=== PATIENT | female | born 1980 | race Caucasian/White ===

== ENCOUNTER 2017-04-20 12:40 | Emergency (ER) | payer OTHER ==
[2017-04-20 12:45] VITALS: BMI 22.6
--- NOTE | 2017-04-20 13:32 | PDOC ---
History of Present Illness - General Chief Complaint: Vaginal Bleeding Stated Complaint: BLEEDING (18 WKS ) Time Seen by Provider: 04/20/17 12:47 History Source: Patient Exam Limitations: No Limitations - History of Present Illness Initial Comments: This is a 36 yo (18 weeks by US, LMP 12/14/16) female who presents with RLQ pain and vaginal spotting. She was feeling bloated this morning but was otherwise feeling well, but about one hour TRANSIT MAN she developed constant non- radiating RLQ pain up to 4/10, as well as vaginal bleeding. She notes having bled about 2 tablespoons of medium-red blood prior to coming to the ED, and she has been using a feminine pad since leaving home for the ED. She has been receiving regular care with Deirdre Mckeon and team at the clinic on , and had an ultrasound which was noted to be normal. The patient does also note that they may have found an abnormality with her cervix during this , but she cannot remember what her diagnosis was. This was a planned with her and otherwise she denies any complications. She also denies any history of (or concern for) STDs. She denies fever, chills, nausea, vomiting, diarrhea, constipation, painful urination, vaginal discharge, headache , or dizziness. She does not know her blood type. Past History - Past Medical History Allergies/Adverse Reactions: Allergies Allergy/AdvReac Type Severity Reaction Status Date / Time No Known Allergies Allergy Verified 04/20/17 12:45 Home Medications: Ambulatory Orders NK [No Known Home Medication] 04/20/17 Other medical history: pt denies - Psycho/Social/Smoking Cessation Hx Suicidal Ideation: No Smoking History: Never smoked Information on smoking cessation initiated: No Hx Alcohol Use: No Drug/Substance Use Hx: No Substance Use Type: None Review of Systems - Review of Systems Able to Perform ROS?: Yes Constitutional: No: Chills, Fever, Unexplained wgt Loss HEENTM: No: Nose Congestion, Throat Pain Respiratory: No: Cough, Shortness of Breath Cardiac (ROS): No: Chest Pain, Lightheadedness, Palpitations ABD/GI: Yes: Other (right lower abdominal pain). No: Constipated, Diarrhea, Nausea, Vomiting, Tarry Stools : Yes: Other (vaginal bleeding). No: Burning, Dysuria Musculoskeletal: No: Back Pain, Neck Pain Integumentary: No: Bruising, Rash Neurological: No: Headache, Numbness, Tingling, Weakness, Dizziness Endocrine: No: Unexplained Weight Gain, Unexplained Weight Loss *Physical Exam - Vital Signs Last Vital Signs Temp Pulse Resp BP Pulse Ox 98.2 F 77 19 116/73 97 04/20/17 12:43 04/20/17 12:43 04/20/17 12:43 04/20/17 12:43 04/20/17 12:43 - Physical Exam General Appearance: Yes: Nourished, Appropriately Dressed, Other (pleasant Venezuelan-speaking female, appears anxious and concerned) HEENT: positive: EOMI, Normal Voice, Hearing Grossly Normal. negative: Scleral Icterus (R), Scleral Icterus (L), Nasal Congestion Neck: positive: Trachea midline, Supple. negative: Tender, Rigid Respiratory/Chest: positive: Lungs Clear, Normal Breath Sounds. negative: Respiratory Distress, Accessory Muscle Use, Labored Respiration, Decreased Breath Sounds, Crackles, Rhonchi, Stridor, Wheezing Cardiovascular: positive: Regular Rhythm, Regular Rate. negative: Murmur Female Pelvic Exam: positive: normal external exam, vaginal bleeding (scant dark blood with small clots, os appears closed, a 1-cm strip of tissue or mucus seems to be stuck half-out of the cervical os and this is not manipulated by the examiner) Gastrointestinal/Abdominal: positive: Normal Bowel Sounds, Tender (mild RLQ tenderness to palpation), Soft, Other (abdomen visibly gravid). negative: Organomegaly, Pulsatile Mass, Guarding, Rebound Musculoskeletal: positive: Normal Inspection. negative: Decreased Range of Motion, Vertebral Tenderness Extremity: positive: Normal Capillary Refill, Normal Inspection, Normal Range of Motion. negative: Tender, Cyanosis Integumentary: positive: Normal Color, Dry, Warm. negative: Erythema, Rash, Bruising Neurologic: positive: local hazmat driver II-XII NML intact (grossly), Fully Oriented, Alert, Normal Mood/Affect, Normal Response, Motor Strength 5/5 ED Treatment Course - LABORATORY CBC & Chemistry Diagram: 04/20/17 13:45 04/20/17 13:45 Comment: UA with 1+ blood otherwise unremarkable Medical Decision Making - Medical Decision Making 36 yo female with known uncomplicated endocervical polym p/w vaginal spotting and RLQ pain @ 18 wks . External exam with mild RLQ ttp, pelvic exam with mucus-like substance stuck half-out of cervix, os open slightly. US bedside shows fetus with +movement, FHR around 128. DDX includes loss of mucus plug, impending miscarriage, placenta previa, placental abruption. Ordered are CBC, CMP, type&screen, hCG quant, UA w/ cx, formal US OB limited. 04/20/17 13:54 Spoke with RN from Deirdre Mckeon's office. Pt had an exam on 01/23 and there were no abnormalities documented. Patient also had a colposcopy and there was no mention of the cervix being open. Large endocervical polyp was a known diagnosis by the clinic. Dr. Lua is the clinic MD and will be front office representative after clinic. 04/20/17 14:24 Dr. Knight spoke with Dr. Lua who will come in to see the patient in 2 hours. Pt herself is doing well with tolerable pain level and bleeding at the same slow rate. CBC diff within normal limits, UA without evidence of infection, 1+ blood. 04/20/17 16:40 Dr. Lua kindly comes to see the patient in the ED. On his examination, os is closed, he states likely cause of scant bleeding is her known polyp. He advised her to follow up with [facility] MOWER REPAIRER MD on Monday, no intercourse, rest. 04/20/17 16:41 Pt's labs are not concerning. Blood type is O positive and she does not require Rhogam. She is appropriate for outpatient followup with [facility]. *DC/Admit/Observation/Transfer Diagnosis at time of Disposition: Vaginal bleeding before 22 weeks gestation, Cramping affecting , antepartum - Discharge Dispostion Disposition: HOME Condition at time of disposition: Stable Admit: No - Referrals Referrals: Deirdre Mckeon MD [Primary Care Provider] - - Patient Instructions Printed Discharge Instructions: DI for Vaginal Bleeding During Additional Instructions: You were seen today for vaginal bleeding and abdominal pain during . Your blood and urine laboratories came back normal. On your ultrasounds done here in the emergency room, the baby appeared fine and we were able to see the heart beat. You have a polyp of tissue in your cervix which was already known according to your SALES AND MARKETING ASSOCIATE's office. This is probably the source of the bleeding. Please call [phone] tonight or tomorrow to make an appointment with Dr. Buckley at [facility] this coming Monday (04/25/17). You can also return to the emergency department for any fever, worsened abdominal pain, worsened bleeding, or other new or worsened symptoms. Print Language: SYRIAC - Attestations Physician Attestion: I, Dr. Dilia Gonzáles, attest that this document has been prepared under my direction and personally reviewed by me in its entirety. I further attest, that it accurately reflects all work, treatment, procedures and medical decision -making performed by me.
--- NOTE | 2017-04-20 14:12 | PDOC ---
Attending Attestation - Medical Decision Making 04/20/17 14:[address] Isbell via cell phone Was told Dr. Lua is network systems consultant. 04/20/17 14:[address] Lua called via phone answering service. Patient's case was discussed. Documentation prepared by Khushboo Liu, acting as special forces medical sergeant for Eloise Knight MD. <Khushboo Liu - Last Filed: 04/20/17 14:18> - Resident Resident Name: Gonzáles,Mary - ED Attending Attestation I have performed the following: I have examined & evaluated the patient, The case was reviewed & discussed with the resident, I agree w/resident's findings & plan, Exceptions are as noted - HPI HPI: 04/20/17 14:07 36 yo F currently G1po at 18 weeks here wtih vaginal spotting and lower abd pain. started today. no n/v less than period but color of a period. no urinary sxs. no other complaints. no flank pain. no trauma. has been seeing DR. Levine , no problems so far this . no mod factors. - Physicial Exam PE: 04/20/17 14:08 on exam awake alert lungs clear bilaterally. no wheeze no crackles. heart RRR no mrg. abd soft NT ND. skin warm and dry. pelvic , mucous with scant blood streak hanging from cervix, cervix open 1 mm. - Medical Decision Making 04/20/17 14:08 36 yo F with at 18 weeks here with vaginal spotting 1 hour prior to arrival. on exam with mucous from cervix. plan ultrasound to evaluate cervical opening. blood type and labsl. will d/w network systems consultant ob. 04/20/17 14:[address] Saucedo, will see pt in the ED , tv us evaluate cevical opening. 04/20/17 16:52 pt evaluted by Sheryl who feels could be polyp, unconcerned. recommend followup in outpt . return for severe pain or worsening symtpoms. pt blood type o positive. dc home. <Eloise Knight - Last Filed: 04/20/17 16:53>
[2017-04-20 14:13] LABS: BASOPHIL 0.2 % (0-2.0); EOSINOPHIL 1.1 % (0-4.5); MCH 30.6 pg (25.7-33.7); MEAN CELL VOLUME 90.1 fl (80-96); MEAN PLT VOLUME 9.1 fl (7.5-11.1); NEUTROPHILS 71.5 % (42.8-82.8); PLATELET COUNT 196 K/MM3 (134-434); RDW 13.8 % (11.6-15.6); WHITE BLOOD COUNT 7.2 K/mm3 (4.0-10.0)
[2017-04-20 14:16] LABS: URINE APPEARANCE CLEAR; URINE BILIRUBIN NEGATIVE (NEGATIVE); URINE BLOOD 1+ (NEGATIVE); URINE COLOR COLORLESS; URINE GLUCOSE (UA) NEGATIVE (NEGATIVE); URINE KETONE NEGATIVE (NEGATIVE); URINE LEUK ESTERASE NEGATIVE (NEGATIVE); URINE NITRITE NEGATIVE (NEGATIVE); URINE PROTEIN NEGATIVE (NEGATIVE); URINE UROBILINOGEN NEGATIVE mg/dL (0.2-1.0)
[2017-04-20 14:42] LABS: ALBUMIN 3.1 g/dl (3.4-5.0); ANION GAP 10 (8-16); BILIRUBIN,TOTAL 0.3 mg/dL (0.2-1.0); CALCIUM 8.8 mg/dL (8.5-10.1); CO2 25 mmol/L (21-32); CREATININE 0.3 mg/dL (0.55-1.02); GLUCOSE,RANDOM 89 mg/dL (74-106); SGOT/AST 20 U/L (15-37); SGPT/ALT 28 U/L (12-78)
[2017-04-20 14:43] LABS: ALK PHOS 65 U/L (45-117); TOT PROT 6.5 g/dl (6.4-8.2)
[2017-04-20 14:44] LABS: INR 0.95 (0.82-1.09); PROTHROMBIN TIME (PATIENT) 10.4 SEC (9.98-11.88)
[2017-04-20 16:01] VITALS: BP 107/62; PULSE 86; TEMP 98.3
== END 2017-04-20 17:00 | disposition home or self-care (01) ==
LOC: JER 12:40
DX: O20.9 Hemorrhage in early pregnancy, unspecified (principal); Z3A.18 18 weeks gestation of pregnancy
CPT/HCPCS: 36415; 76815; 76817-TC; 80053; 81003; 81015; 85025; 85610; 86850; 86900; 86901; 87086; 99283-25

== ENCOUNTER 2017-09-15 13:35 | Inpatient (IN) | payer OTHER ==
[2017-09-15] MEDS ORDERED: DINOPROSTONE 10 MG VAGINAL SUPPOSITORY VG ONE (14:20)
[2017-09-15 14:58] VITALS: BMI 27.9
[2017-09-15] MEDS ORDERED: SODIUM PHOSPHATE/NA BIPHOS 133 ML ENEMA PR ONE (15:06)
[2017-09-15] MEDS ORDERED: DEXTROSE 5%-LACTATED RINGERS 1,000 ML IV SCH (15:15)
[2017-09-15 15:22] LABS: BASO % 0.4 % (0-2.0); EOS % 1.1 % (0-4.5); HEMOGLOBIN 12.7 GM/dL (10.7-15.3); LYMPH % 20.6 % (8-40); MCH 31.8 pg (25.7-33.7); MCHC 34.3 g/dl (32.0-36.0); MEAN CELL VOLUME 92.6 fl (80-96); MONO % 7.2 % (3.8-10.2); NEUT % 70.7 % (42.8-82.8); RBC 3.99 M/mm3 (3.60-5.2); RDW 13.4 % (11.6-15.6); WHITE BLOOD COUNT 6.2 K/mm3 (4.0-10.0)
--- NOTE | 2017-09-15 15:33 | HP ---
Past Medical History - Primary Care Physician PCP:: Flower Buckley - Admission Chief Complaint: pt for induction of labor History of Present Illness: 37 yrs 40.3 weeks iup, with Oligohydramnios admitted for Induction of labor . Sono 09/15/17 SLIUP Vx, YOBANY 3.5, BPP 6/8, EFW 7'6"( 3354 gm) post dates monitored by NST , cat-1 PNC at [address] [place] [address] . Wt gain 31 lbs serial sono done by MFM for growth . AFP & Materna T -21 neg work Up : O pos, Rubella immune, Hbsag neg, Rpr nr,Sickle neg, Quantiferon neg, Hiv neg , Gc/Ct cultures neg, Gbs neg, Pngt 134 01/21/17 pap abn LSIL, Non 16/18 HR Hpv pos 03/13/[address] Isbell h/o cervical polyp, early pregn bleeding . 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 No: Gastritis Hepatobiliary: No: Cholelithiasis, Hepatitis B Renal/: No: UTI Reproductive: Yes: Other (01/21/17 Pap Lsil, Non 16/18 HR Hpv pos 03/13/17 colposcopy without bx during ) ...: 1 ...Para: 0 ...Term: 0 ...: 0 ...Spon : 0 ...Induced : 0 ...Multiple Gestation: 0 ...LMP: 12/14/16 ... Weeks Gestation by Dates: 39.2 ...EDC by Dates: 09/20/17 ...EDC by Sono: 09/12/17 (40.3 weeks ) Heme/Onc: No: Anemia Infectious Disease: No: AIDS, HIV, STD's, Tuberculosis Psych: No: Addictions, Anxiety, Bipolar, Depression, Panic Endocrine: No: Diabetes Mellitus, Hyperthyroidism - Past Surgical History Past Surgical History: Yes: None Hx Myomectomy: No Hx Transabdominal Cerclage: No - Smoking History Smoking history: Never smoked Have you smoked in the past 12 months: No - Alcohol/Substance Use Hx Alcohol Use: No Home Medications - Allergies Allergies/Adverse Reactions: Allergies Allergy/AdvReac Type Severity Reaction Status Date / Time albuterol Allergy Mild Itching Verified 09/15/17 14:41 - Home Medications Home Medications: Ambulatory Orders Ferrous Sulfate [Feosol] 325 mg PO BID 09/15/17 Vitamins (Sjr) - 1 tab PO DAILY 09/15/17 Physical Exam - Maternity Vital Signs: Vital Signs Temperature 98.4 F 09/15/17 14:15 Pulse Rate 69 09/15/17 15:00 Respiratory Rate 20 09/15/17 15:00 Blood Pressure 116/69 09/15/17 15:00 O2 Sat by Pulse Oximetry (%) Constitutional: Yes: Well Nourished, No Distress Eyes: Yes: WNL HENT: Yes: WNL, Normocephalic Neck: Yes: WNL, Supple Cardiovascular: Yes: WNL, Regular Rate and Rhythm Lungs: Clear to auscultation Breast(s): Yes: WNL - Abdominal Exam/OB Fundal Height: 38 Number of Fetuses: Single Presentation: Vertex Regularity: Irregular Intensity: Unaware Monitor Mode: External Heart Rate (range): 130 Heart Rate Location: [facility] Category: I Accelerations: Uniform Decelerations: None - Vaginal Exam/OB Vaginal Bleediing: Fresh Blood (minimal) Speculum Exam: No Dilatation (cm): FT Effacement (%): 50 Amniotic Membrane Status: Intact Presentation: Vertex/Position Station: -2 - Physical Exam Musculoskeletal: Yes: WNL Extremities: Yes: WNL. No: Calf Tenderness Edema: Yes Edema: LLE: 1+, RLE: 1+ Deep Tendon Reflex Grade: Normal +2 ...Motor Strength: WNL Psychiatric: Yes: WNL - Labs Lab Results: Laboratory Tests 09/15/17 09/15/17 09/15/17 14:30 14:35 14:35 WBC 6.2 Hgb 12.7 Hct 37.0 Plt Count 151 D Neutrophils % 70.7 Lymphocytes % 20.6 Monocytes % 7.2 PT with INR 9.50 L INR 0.84 L Sodium Potassium Chloride Carbon Dioxide BUN Creatinine Random Glucose Urine Protein Negative Ur Leukocyte Esterase Trace H Urine WBC (Auto) 8 Urine RBC (Auto) <1 Blood Type Antibody Screen 09/15/17 09/15/17 14:35 14:35 WBC Hgb Hct Plt Count Neutrophils % Lymphocytes % Monocytes % PT with INR INR Sodium 138 Potassium 4.0 Chloride 106 Carbon Dioxide 23 BUN 14 D Creatinine 0.4 L D Random Glucose 85 Urine Protein Ur Leukocyte Esterase Urine WBC (Auto) Urine RBC (Auto) Blood Type O POSITIVE Antibody Screen Negative Problem List - Problems (1) AMA (advanced maternal age) primigravida 35+ Code(s): O09.519 - SUPERVISION OF ELDERLY PRIMIGRAVIDA, UNSPECIFIED TRIMESTER Qualifiers: Trimester: third trimester Qualified Code(s): O09.513 - Supervision of elderly primigravida, third trimester (2) Post-term , 40-42 weeks of gestation Code(s): O48.0 - POST-TERM (3) Post term over 40 weeks Code(s): O48.0 - POST-TERM (4) Elective induction of labor planned Code(s): [id number] - (5) Oligohydramnios Code(s): O41.00X0 - OLIGOHYDRAMNIOS, UNSP TRIMESTER, NOT APPLICABLE OR UNSP Qualifiers: Fetus number: single or unspecified fetus Trimester: third trimester Qualified Code(s): O41.03X0 - Oligohydramnios, third trimester, not applicable or unspecified Assessment/Plan 37 yra ( AMA) , 40.3/7 weeks( post term ) , Severe Oligohydramnios , admitted for induction of labor . gbs neg . Plan cervidil induction of labor Trial of labor for vaginal delivery
[2017-09-15 15:37] LABS: INR 0.84 (0.82-1.09); PROTHROMBIN TIME (PATIENT) 9.5 SEC (9.98-11.88)
[2017-09-15 15:40] LABS: ACTIVATED PTT 27.7 SECONDS (26.9-34.4)
[2017-09-15 15:45] LABS: URINE APPEARANCE CLEAR; URINE BILIRUBIN NEGATIVE (NEGATIVE); URINE BLOOD NEGATIVE (NEGATIVE); URINE COLOR YELLOW; URINE GLUCOSE (UA) NEGATIVE (NEGATIVE); URINE KETONE NEGATIVE (NEGATIVE); URINE NITRITE NEGATIVE (NEGATIVE); URINE PROTEIN NEGATIVE (NEGATIVE); URINE UROBILINOGEN NEGATIVE mg/dL (0.2-1.0)
[2017-09-15 15:46] LABS: URINE LEUK ESTERASE 1+ (NEGATIVE)
[2017-09-15 15:46] LABS: PLATELET COUNT 151 K/MM3 (134-434); PLATELET ESTIMATE DECREASED
[2017-09-15 15:47] LABS: EPI CELLS FEW /HPF (FEW); URINE MUCUS RARE
[2017-09-15 15:55] LABS: ANION GAP 9 (8-16); BLOOD UREA NITROGEN 14 mg/dL (7-18); CALCIUM 8.2 mg/dL (8.5-10.1); CHLORIDE 106 mmol/L (98-107); CO2 23 mmol/L (21-32); CREATININE 0.4 mg/dL (0.55-1.02); GLUCOSE,RANDOM 85 mg/dL (74-106); SODIUM 138 mmol/L (136-145)
[2017-09-15] MEDS ORDERED: BUTORPHANOL TARTRATE 1 MG/ML VIAL IVPUSH ONE (23:15)
[2017-09-15] MEDS ORDERED: PROMETHAZINE HCL 25 MG/1 ML VIAL IVPUSH ONE (23:15)
[2017-09-16] MEDS ORDERED: DEXTROSE 5%-LACTATED RINGERS 1,000 ML IV ONE (02:45)
[2017-09-16] MEDS ORDERED: OXYTOCIN 15 UNITS/ LR 250 ML 15 UNIT/250 ML INFUS.BAG IVPB SCH (03:30)
[2017-09-16] MEDS ORDERED: PROMETHAZINE HCL 25 MG/1 ML VIAL ONE (04:37)
[2017-09-16] MEDS ORDERED: BUTORPHANOL TARTRATE 1 MG/ML VIAL ONE ×2 (04:37)
--- NOTE | 2017-09-16 07:06 | PN ---
Progress Note, Labor Vaginal Exam #1 Labor Exam Date: 09/16/17 Labor Exam Time: 06:57 Heart Rate (range): 150 Dilatation: 2-3 Effacement (%): 70 Amniotic Membrane Status: Intact Presentation: Vertex/Position Station: -2 Remarks: fhr cat-1 uc irregular , 2-3-5 min . 2.30 am cervidil removed 3.30 am Pitocin Induction started 4.40 AM stadol 2mg + phenrgan 25 mg iv stat given Selected Entries 09/16/17 09/16/17 06:00 07:00 Temperature 97.6 F Pulse Rate 69 79 Blood Pressure 115/65 118/62 Vaginal Exam #2 Labor Exam Date: 09/16/17 Labor Exam Time: 11:28 Heart Rate (range): 150 Dilatation: 6 Effacement (%): 100 Amniotic Membrane Status: Intact Station: 0 (0/+1) Remarks: fhr cat-1 uc q3-6 11.00 AM epidural labor analgesia given pitocin 8ml/hr Selected Entries 09/16/17 10:00 Temperature 98.7 F Pulse Rate 57 L Blood Pressure 116/58 Vaginal Exam #3 Labor Exam Date: 09/16/17 Labor Exam Time: 14:04 Heart Rate (range): 160 Dilatation: 9 Effacement (%): 100 Amniotic Membrane Status: Ruptured (srom at 11.45am , clear) Presentation: Vertex/Position Station: +2 Remarks: fhr cat-1 uc 2-5 min dysfunctional uc . pit 12 ml /hr . pt comfortable. Selected Entries 09/16/17 09/16/17 13:00 13:15 Temperature 99.1 F Pulse Rate 63 61 Blood Pressure 99/57 108/61 Vaginal Exam #4 Labor Exam Date: 09/16/17 Labor Exam Time: 15:10 Heart Rate (range): 150--170 Dilatation: 10 Effacement (%): 100 Amniotic Membrane Status: Ruptured Presentation: Vertex/Position (ROP) Station: +2 (+2/+3) Remarks: fhr cat-1 sometimes cat-11 uc 2-4 min pt encouraged to push Selected Entries 09/16/17 09/16/17 09/16/17 14:00 14:15 14:30 Temperature 99 F Pulse Rate 69 70 67 Blood Pressure 110/62 95/48 09/16/17 14:45 Temperature Pulse Rate 70 Blood Pressure
[2017-09-16] MEDS ORDERED: FENTANYL/BUPIVACAINE/NS/PF - PCEA - 50 ML DISP.SYRIN EP ONE (10:01)
[2017-09-16] MEDS ORDERED: ELECTROLYTE-148 SOLN 1,000 ML IV SCH (10:30)
[2017-09-16] MEDS ORDERED: FENTANYL/BUPIVACAINE/NS/PF - PCEA - 50 ML DISP.SYRIN EP SCH (12:00)
[2017-09-16] MEDS ORDERED: OXYTOCIN 20 UNITS in 0.9% NS 20 UNIT/1,000 ML INFUS.BAG IV ONE (15:06)
[2017-09-16] MEDS ORDERED: LIDOCAINE HCL 1% PRESERVATIVE FREE - 30ML VIAL ONE (15:06)
[2017-09-16] MEDS ORDERED: oxyCODONE HCL 5 MG TABLET PO PRN (16:53)
[2017-09-16] MEDS ORDERED: IBUPROFEN 600 MG TABLET (FP) PO PRN (16:53)
[2017-09-16] MEDS ORDERED: ACETAMINOPHEN 325 MG TABLET (FP) PO PRN (16:53)
[2017-09-16] MEDS ORDERED: BENZOCAINE 20% 57 GM BOTTLE TP PRN (16:53)
[2017-09-16] MEDS ORDERED: METHYLERGONOVINE MALEATE 0.2 MG/1 ML AMP IM PRN (16:53)
[2017-09-16] MEDS ORDERED: BISACODYL 10 MG SUPP.RECT RC PRN (16:53)
[2017-09-16] MEDS ORDERED: BENZOCAINE 28 GM HEMORRHOIDAL OINTMENT TP PRN (16:53)
[2017-09-16] MEDS ORDERED: WITCH HAZEL 50% (TUCKS) 40 PAD/JAR PAD TP PRN (16:53)
[2017-09-16] MEDS ORDERED: OXYTOCIN 20 UNITS in 0.9% NS 20 UNIT/1,000 ML INFUS.BAG IV SCH (17:00)
--- NOTE | 2017-09-16 17:04 | PN ---
Delivery - Delivery Vaginal Delivery: No Problems, Spontaneous (pt delievered as ROP position, cord around arm & between chest & uterus of mother . immediate suction nasal & oral was done & baby handed over to vat overhauler Dr Griffiths) Type of Anesthesia: Local, Epidural Episiotomy/Laceration: Midline (episiotomy was sutured in layers with chr catgut #2/0 . Pr exam mucosa & sphincter was intact) EBL (cc): 400 Delivery, Single - Stages of Labor Date 1st Stage Initiatied: 09/15/17 Time 1st Stage Initiated: 22:00 Date 2nd Stage Initiated: 09/16/17 Time 2nd Stage Initiated: 15:10 Date of Delivery: 09/16/17 Time of Delivery: 16:16 Date Placenta Delivered: 09/16/17 Time Placenta Delivered: 16:20 Placenta: Yes: Spontaneous, Uterine Exploration - Condition of Infant Ax Survey Worker/Lead Net Software Developer Present: Yes Name: [email or web address] Gender: Male Weight: 6 lb 7 oz Position: Right, OP Total Hours ROM (Hrs/Mins): 4hrs/35mins light meconiu - 1 Minute Total Score: 7 5 Minutes Total Score: 9 - [place] Feeding Plan Initial Plan: Exclusive throughout hospitalization Remarks - Remarks Remarks: 37 yrs ( AMA) , ,post term pregn ( 40.3 wks) , Oligohydramnios ( vinicio 3.5) , gbs neg pnc at [address] [place] [address] 10/16/16 cervidil insertion for induction of labor stadol + phenrgan followed by Epidural labor analgesia . Pitocin induction 10/17/16
[2017-09-16 17:15] LABS: ARTERIAL BLOOD GAS BASE EXCESS -5.7 meq/l (-2-2)
[2017-09-16 17:16] LABS: VENOUS PC02 56.2 mmHg (38-52); VENOUS PO2 20.8 mmHg (28-48)
[2017-09-16 17:17] LABS: ARTERIAL BLOOD GAS pH 7.24 (7.35-7.45)
[2017-09-16 17:18] LABS: ARTERIAL BLD GAS O2 SATURATION 32.4 % (90-98.9); ARTERIAL BLOOD GAS PO2 20.2 mmHg (80-100); VENOUS PH 7.21 (7.32-7.42)
[2017-09-16] MEDS: FERROUS SO4 325 MG TABLET (FP) PO SCH (18:09)
[2017-09-17] MEDS: FERROUS SO4 325 MG TABLET (FP) PO SCH ×2 (09:01→17:11)
[2017-09-17] MEDS: PRENATAL VITAMINS W/ FOLIC ACID TABLET (FP) PO SCH (09:01)
[2017-09-17 09:07] LABS: BASO % 0.4 % (0-2.0); EOS % 0.5 % (0-4.5); HEMOGLOBIN 11.3 GM/dL (10.7-15.3); LYMPH % 10.4 % (8-40); MCH 30.7 pg (25.7-33.7); MCHC 33.1 g/dl (32.0-36.0); MEAN CELL VOLUME 92.8 fl (80-96); MONO % 3.9 % (3.8-10.2); NEUT % 84.8 % (42.8-82.8); PLATELET COUNT 122 K/MM3 (134-434); RBC 3.67 M/mm3 (3.60-5.2); RDW 13.4 % (11.6-15.6); WHITE BLOOD COUNT 14.7 K/mm3 (4.0-10.0)
--- NOTE | 2017-09-17 11:59 | PN ---
Post Progress Note - Subjective Subjective: c/o perineal soreness voiding without difficulty Post Day: 1 Type of Delivery: Vital Signs: Vital Signs Temperature 97.9 F 09/17/17 08:33 Pulse Rate 83 09/17/17 08:33 Respiratory Rate 20 09/17/17 08:33 Blood Pressure 110/73 09/17/17 08:33 O2 Sat by Pulse Oximetry (%) 98 09/16/17 17:55 Breast Exam: Yes: Other (BF ). No: Engorged Uterus: Yes: Fundus Firm, Fundus below umbilicus, Non-tender Lochia: Yes: Rubra Lochia, amount: Moderate Extremities: Yes: Calves non-tender, Edema Perineum: Yes: Episiotomy (healing ) Activity: Ambulating - Labs Labs: CBC WBC 14.7 K/mm3 (4.0-10.0) H D 09/17/17 08:30 RBC 3.67 M/mm3 (3.60-5.2) 09/17/17 08:30 Hgb 11.3 GM/dL (10.7-15.3) D 09/17/17 08:30 Hct 34.0 % (32.4-45.2) 09/17/17 08:30 MCV 92.8 fl (80-96) 09/17/17 08:30 MCH 30.7 pg (25.7-33.7) 09/17/17 08:30 MCHC 33.1 g/dl (32.0-36.0) 09/17/17 08:30 RDW 13.4 % (11.6-15.6) 09/17/17 08:30 Plt Count 122 K/MM3 (134-434) L 09/17/17 08:30 MPV 10.0 fl (7.5-11.1) 09/17/17 08:30 Neutrophils % 84.8 % (42.8-82.8) H 09/17/17 08:30 Lymphocytes % 10.4 % (8-40) D 09/17/17 08:30 Monocytes % 3.9 % (3.8-10.2) 09/17/17 08:30 Eosinophils % 0.5 % (0-4.5) 09/17/17 08:30 Basophils % 0.4 % (0-2.0) 09/17/17 08:30 Platelet Estimate Decreased 09/15/17 14:35 Platelet Comment No clumping noted 09/15/17 14:35 Problem List - Problems (1) AMA (advanced maternal age) primigravida 35+ Code(s): O09.519 - SUPERVISION OF ELDERLY PRIMIGRAVIDA, UNSPECIFIED TRIMESTER Qualifiers: Trimester: third trimester Qualified Code(s): O09.513 - Supervision of elderly primigravida, third trimester (2) Post-term , 40-42 weeks of gestation Code(s): O48.0 - POST-TERM (3) Post term over 40 weeks Code(s): O48.0 - POST-TERM (4) Elective induction of labor planned Code(s): [id number] - (5) Oligohydramnios Code(s): O41.00X0 - OLIGOHYDRAMNIOS, UNSP TRIMESTER, NOT APPLICABLE OR UNSP Qualifiers: Fetus number: single or unspecified fetus Trimester: third trimester Qualified Code(s): O41.03X0 - Oligohydramnios, third trimester, not applicable or unspecified Assessment/Plan stable. plan discharge tomorrow
[2017-09-17] MEDS ORDERED: SENNOSIDES/DOCUSATE COMBO (SENNA PLUS) TABLET (UD) PO PRN (22:00)
[2017-09-18] MEDS: PRENATAL VITAMINS W/ FOLIC ACID TABLET (FP) PO SCH (09:35)
[2017-09-18] MEDS: FERROUS SO4 325 MG TABLET (FP) PO SCH (09:35)
--- NOTE | 2017-09-18 10:14 | DS ---
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 perineal soreness less) Breast(s): Yes: WNL (not engorged . BF) Musculoskeletal: Yes: WNL Extremities: Yes: WNL. No: Calf Tenderness Edema: LLE: Trace, RLE: Trace Integumentary: Yes: WNL Neurological: Yes: WNL ...Motor Strength: WNL Psychiatric: Yes: WNL, Alert, Oriented Labs: CBC, BMP 09/17/17 08:30 09/15/17 14:35 Delivery - Delivery Vaginal Delivery: No Problems, Spontaneous (pt delievered as ROP position, cord around arm & between chest & uterus of mother . immediate suction nasal & oral was done & baby handed over to rn school Dr Griffiths) Type of Anesthesia: Local, Epidural Episiotomy/Laceration: Midline (episiotomy was sutured in layers with chr catgut #2/0 . Pr exam mucosa & sphincter was intact) EBL (cc): 400 Delivery, Single - Stages of Labor Date 1st Stage Initiatied: 09/15/17 Time 1st Stage Initiated: 22:00 Date 2nd Stage Initiated: 09/16/17 Time 2nd Stage Initiated: 15:10 Date of Delivery: 09/16/17 Time of Delivery: 16:16 Time Placenta Delivered: 16:20 Placenta: Yes: Spontaneous, Uterine Exploration - Condition of Infant Financial Internship/Insurance Claims Clerk Present: Yes Name: Aye Loomis Infant Gender: Male Weight: 6 lb 7 oz Position: Right, OP Total Hours ROM (Hrs/Mins): 4hrs/35mins light meconiu - 1 Minute Total Score: 7 5 Minutes Total Score: 9 - Feeding Plan Initial Plan: Exclusive throughout hospitalization Remarks - Remarks Remarks: 37 yrs ( AMA) , ,post term pregn ( 40.3 wks) , Oligohydramnios ( vinicio 3.5) , gbs neg pnc at [address] [place] [address] 10/16/16 cervidil insertion for induction of labor stadol + phenrgan followed by Epidural labor analgesia . Pitocin induction 10/17/16 discharge today Discharge Summary Reason For Visit: INDUCTION OF LABOR Current Active Problems AMA (advanced maternal age) primigravida 35+ (Acute) Elective induction of labor planned (Acute) Normal spontaneous vaginal delivery (Acute) Oligohydramnios (Acute) Post term over 40 weeks (Acute) Post-term , 40-42 weeks of gestation (Acute) - Instructions Diet, Activity, Other Instructions: Post Instructions DIET: Continue good diet high in protein, calcium, and iron rich foods. Drink at least eight (8) glasses of water daily in addition to other fluids. ct Regular diet MEDICATIONS: Continue vitamins and iron as previously directed. Motrin and Tylenol may be taken for minor discomfort. ACTIVITY: Mild to moderate exercise may be started in two (2) weeks. Take frequent rest periods. Resume normal activity after six (6) week check up. WOUND CARE OF OPERATIVE SITE: Continue use of perineal bottle until vaginal discharge stops. Keep area clean. Shower daily. Keep abdominal wound dry. Report any drainage or redness to physician. Tub baths, tampons and douches are not permitted for [address] Breast feeding & or Bottle feeding BREAST CARE: (For those that are not breast feeding): If engorgement occurs: Wear tight fitting bra. Take Tylenol or Motrin for pain. Apply cold packs (ice in bags to each breast ) FAMILY PLANNING: There are many control alternatives to pursue and they should be discussed at your first office visit. You may resume sexual activity after your six (6) week check up. (Remember, breast feeding is not a contraceptive) NEXT PHYSICIAN APPOINTMENT: Be certain to call for a six (6) week appointment, unless otherwise directed. Call Clinic or got to Emergency Dept if you have any of the following: Heavy vaginal bleeding Painful urination Leg pain Unusual odor noted to vaginal bleeding High fever Red streaking noted on breast Referrals: Flower Buckley MD [Staff Physician] - - Home Medications Comprehensive Discharge Medication List: Ambulatory Orders Ferrous Sulfate [Feosol] 325 mg PO BID 09/15/17 Vitamins (Sjr) - 1 tab PO DAILY 09/15/17 Acetaminophen [Tylenol .Regular Strength -] 650 mg PO Q3H PRN tablet 09/17/17 Benzocaine [Americaine 20% [place] -] 1 spray TP PRN PRN bottle 09/17/17 Ferrous Sulfate [Feosol] 325 mg PO BIDWM tab 09/17/17 Ibuprofen [Motrin -] 200 mg PO Q4H PRN tablet 09/17/17 Vitamins (Sjr) - 1 tab PO DAILY tablet 09/17/17 Witch Gia 50% (Tucks) [Tucks Pads -] 1 pad TP PRN PRN pad 09/17/17
[2017-09-18 10:48] VITALS: BP 104/75; PULSE 77; TEMP 97.9
--- NOTE | 2017-09-21 13:21 | PATH ---
Surgical Pathology Report Patient Name: SAUD CONNOR [facility]. Rec. #: [id number] /Age/Gender: 1980 (Age: 37) / F Account: [id number] Location: [facility] OBS/FURNACE COMBUSTION TESTER Taken: 09/16/2017 Received: 09/19/2017 Reported: 09/21/2017 Physicians: Flower Buckley M.D. Specimen(s) Received PLACENTA Clinical History , 40.3 weeks oligohydramnios Final Diagnosis PLACENTA, DELIVERY: SMALL (370 GRAM) THIRD TRIMESTER PLACENTA WITH MECONIUM HISTIOCYTOSIS OF MEMBRANES, FOCAL CALCIFICATION AND THREE-VESSEL UMBILICAL CORD. Electronically Signed Minh Ko M.D. Gross Description The specimen is received fresh labeled placenta and is a 370 gram, 15.0 x 14.8 x 2.5 cm. placenta with attached membranes and umbilical cord. The attached membranes are sam green, meconium stained, translucent with focal opacities and insert marginally. The umbilical cord measures 15 cm. in length and averages 1 cm. in diameter. The cord inserts eccentrically, 2.5 cm. to the nearest margin. No true knots or strictures are identified. Cut surface of the umbilical cord reveals 3 vessels. The surface is davis-blue with minimal fibrin deposition and appropriate caliber vessels. The maternal surface is red-brown and intact. Sectioning reveals red-brown, spongy parenchyma. No lesions are identified. Test Development Engineer sections are submitted in three cassettes as follows: 1- membrane rolls and umbilical cord; 2-3- full thickness sections of placenta. /09/20/201709/20/2017
== END 2017-09-18 13:00 | disposition home or self-care (01) | DRG 560 ==
LOC: JLDR 13:35 → J3W 09-16 18:00
PROVIDERS: ADMIT Obstetrics & Gynecology; ATTEND Obstetrics & Gynecology
PROC: 0W8NXZZ Division of Female Perineum, External Approach (ICD-10-PCS; principal; 2017-09-16)
PROC: 10E0XZZ Delivery of Products of Conception, External Approach (ICD-10-PCS; 2017-09-16)
DX: O48.0 Post-term pregnancy (principal); O41.03X0 Oligohydramnios, third trimester, not applicable or unspecified; Z3A.40 40 weeks gestation of pregnancy; Z37.0 Single live birth
CPT/HCPCS: 36415; 36600; 59409; 80048; 81003; 81015; 82803; 85025; 85610; 85730; 86593; 86850; 86900; 86901; 88307-TC